=== PATIENT | male | born 1985 | race African-American/Black ===

== ENCOUNTER 2018-06-10 19:15 | Emergency (ER) | payer OTHER ==
[~2018-06-10] VITALS: Ht 188 cm; Wt 158.8 kg
[2018-06-10 20:10] LABS: URINE BILIRUBIN NEGATIVE (Negative); URINE BLOOD NEGATIVE (Negative); URINE CLARITY CLEAR; URINE COLOR YELLOW; URINE GLUCOSE-RANDOM* NEGATIVE (Negative); URINE KETONES TRACE (Negative); URINE LEUKOCYTES NEGATIVE (Negative); URINE NITRITE NEGATIVE (Negative); URINE PROTEIN (DIPSTICK) NEGATIVE (Negative); URINE SPECIFIC GRAVITY 1.015 (1.005-1.035)
[2018-06-10] MEDS ORDERED: FLAGYL500 M1 PO (20:13)
[2018-06-10 20:23] VITALS: BP 151/93
== END 2018-06-10 20:23 | disposition home or self-care (01) ==
LOC: ER 19:15
PROVIDERS: Physician Assistant
DX: Z20.2 Contact with and (suspected) exposure to infections with a predominantly sexual mode of transmission (principal)

== ENCOUNTER 2020-08-16 04:17 | Emergency (ER) | payer OTHER ==
[~2020-08-16] VITALS: Ht 188 cm; Wt 147.4 kg
[~2020-08-16 04:17] MED LIST: FLAGYL500 M1 PO
[2020-08-16 04:21] VITALS: BP 137/83
[2020-08-16] MEDS ORDERED: ZESTRIL40 MG PO (04:24)
[2020-08-16] MEDS ORDERED: GLUMETZA500 PO (04:24)
[2020-08-16] MEDS ORDERED: FLAGYL500 M1 PO (04:46)
== END 2020-08-16 05:00 | disposition home or self-care (01) ==
LOC: ER 04:17
DX: Z20.2 Contact with and (suspected) exposure to infections with a predominantly sexual mode of transmission (principal); E11.9 Type 2 diabetes mellitus without complications; Z79.899 Other long term (current) drug therapy